=== PATIENT | male | born 1970 | race Caucasian/White ===

== ENCOUNTER 2019-09-19 15:11 | Emergency (ER) | payer OTHER ==
[~2019-09-19] VITALS: Ht 177.8 cm; Wt 92.5 kg
[~2019-09-19 15:11] MED LIST: ATIVAN1 MG PO; IBUPROFEN 200200 M1 PO; LEXAPRO 10 MG T10 M2 PO; LORAZEPAM 1 MG T1 M1 PO; MEDROL4 MG; MEDROLDOSEPACK PO; MELOXICAM7.5 MG PO; NEURONTIN 300300 M1 PO; NORFLEX100 MG PO; PERCOCET 5-3251 EACH PO
[2019-09-19 17:11] LABS: URINE BILIRUBIN NEGATIVE (Negative); URINE BLOOD NEGATIVE (Negative); URINE CLARITY CLEAR; URINE COLOR YELLOW; URINE GLUCOSE-RANDOM* NEGATIVE (Negative); URINE KETONES NEGATIVE (Negative); URINE LEUKOCYTES-REFLEX TRACE (Negative); URINE NITRITE-REFLEX NEGATIVE (Negative); URINE PROTEIN (DIPSTICK) NEGATIVE (Negative); URINE SPECIFIC GRAVITY 1.015 (1.005-1.035); URINE UROBILINOGEN 0.2 E.U./dl (0.2-1.0)
[2019-09-19 17:11] LABS: ABSOLUTE NEUTROPHILS 11.4 thou/uL (1.4-8.2); BASOPHILS 0.2 % (0.0-2.0); HEMATOCRIT 41.2 % (42.0-52.0); HEMOGLOBIN 13.8 gm/dL (14.0-18.0); LYMPHOCYTES 4.6 % (24.0-44.0); MCH 29.3 pg (26.0-34.0); MCHC 33.5 g/dL (28.0-37.0); MCV 87.5 fL (80.0-100.0); MONOCYTES 6.3 % (1.0-8.0); PLATELET COUNT 221 thou/uL (150-400); POLYS 88.9 % (36.0-66.0); RBC 4.72 mil/uL (4.50-6.00); RDW 14.1 % (10.5-14.5); WBC 12.8 thou/uL (4.0-11.0)
[2019-09-19 17:19] LABS: ANION GAP 12 mmol/L (7-16); BUN 19 mg/dL (7-18); CHLORIDE 100 mmol/L (98-107); CO2 23 mmol/L (21-32); CREATININE 1.5 mg/dL (0.7-1.3); GLUCOSE 109 mg/dL (74-106); POTASSIUM 3.6 mmol/L (3.5-5.1); SODIUM 135 mmol/L (136-145)
[2019-09-19 17:20] LABS: AMP/METHAMP Negative (Negative); BARBITURATES Negative (Negative); BENZODIAZEPINES POSITIVE (Negative); COCAINE Negative (Negative); METHADONE Negative (Negative); OPIATES Negative (Negative); PCP Negative (Negative)
[2019-09-19 17:29] LABS: TROPONIN-I <0.06 ng/mL (<0.06)
[2019-09-19 18:21] VITALS: BP 99/56
--- NOTE | 2019-09-21 08:44 | EKG ---
[facility] [place] [address] ELECTROCARDIOGRAM REPORT Name: MARIUSZ PATEL Room #: [facility]P [facility].#: [id number] Admission: 09/19/19 Attend Phys: Discharge: 09/19/19 Date of : 70 Report #: [id number] THIS REPORT FOR: cc: Mariusz Anderson MD, Christopher B. MD Lundgren,Sachin Vasquez MD [facility] ~ THIS REPORT FOR: //name// [facility] ED Test Date: 2019-09-19 Test Time: 15:38:29 Pat Name: MARIUSZ PATEL Department: Room: Gender: Control Systems Technician: SIMBA : 1970 Requested By: Oksana Wang Order Number: [id number] MD: Sachin Gomez Measurements Intervals [place] Rate: 134 P: 64 OR: 129 QRS: 63 QRSD: 94 T: -15 QT: 306 QTc: 457 Interpretive Statements Sinus tachycardia Small inferior Q waves Baseline wander in lead(s) V2 Compared to ECG 02/08/2013 18:24:26 Heart rate has increased Electronically Signed On 09-21-2019 8:42:44 CDT by Sachin Gomez [email or web address] <ELECTRONICALLY SIGNED> By: Sachin Gomez MD, [facility] 09/21/19 [id number] Sachin Gomez MD, [facility] /EPI
== END 2019-09-19 18:22 ==
LOC: ER 15:11
PROVIDERS: Emergency Medicine
DX: S01.81XA Laceration without foreign body of other part of head, initial encounter (principal); F10.129 Alcohol abuse with intoxication, unspecified; Z91.013 Allergy to seafood; Z88.8 Allergy status to other drugs, medicaments and biological substances; Z98.890 Other specified postprocedural states; W18.30XA Fall on same level, unspecified, initial encounter; Y93.89 Activity, other specified; Y92.89 Other specified places as the place of occurrence of the external cause; Y99.9 Unspecified external cause status; Y90.9 Presence of alcohol in blood, level not specified